=== PATIENT | male | born 1970 | race Asian ===

== ENCOUNTER 2023-10-08 13:18 | Outpatient (AMB) | payer BC, SELFPAY ==
--- NOTE | 2023-10-08 13:28 | A.OFFPC_ITS ---
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 Required: No Accompanied by: Self / Same As Patient Allergies No Known Allergies Allergy (Verified 10/08/23 13:29) Medication List - Last Reconciled 10/08/23 by Javier Miguel MD allopurinol 200 mg PO DAILY colchicine 0.6 mg PO DAILY diclofenac potassium 50 mg PO BID Tobacco use date assessed: 10/08/23 Dental Screening Dental Screen Date: 10/08/23 Did you have a dental visit in the last 12 months?: Yes Did you have a dental problem in the last 6 months where you did not have access to dental care?: No Was dental information given to patient?: Patient has dentist HPI Establish Care OK per [place] HPI Details Patient is a 52-year-old gentleman came in today for establish care and physical exam Patient have a history of gout, he is on allopurinol and takes colchicine for flare-up Patient has been doing well Last time he had uric acid level drawn was last year it was in 6 range Patient is requesting a referral to Rheumatology for management of gout. He has moved from [place] few months ago. Patient also have a history of patellar tendinitis which started in left knee and then progressed to right, that 2 flares up every now and then Patient uses diclofenac local drop for that. History of right shoulder AC joint separation, then he developed a frozen shoulder 2-1/2 years ago which resolved with the help of physical therapy. 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 1. Little interest or pleasure in doing things: not at all 2. Feeling down, depressed, or hopeless: not at all 3. Trouble falling or staying asleep, or sleeping too much: not at all 4. Feeling tired or having little energy: not at all 5. Poor appetite or overeating: not at all 6. Feeling bad about yourself - or that you are a failure or have let yourself or your family down: not at all 7. Trouble concentrating on things, such as reading the newspaper or watching television: not at all 8. Moving or speaking so slowly that other people could have noticed. Or the opposite - being so fidgety or restless that you have been moving around a lot more than usual: not at all 9. Thoughts that you would be better off or of hurting yourself in some way: not at all Total score: 0 Depression Screening Interpretation: Negative Depression Screening Done: Yes 86280 - PHQ-9 Billing: Yes Source: Developed by Drs. Matt Beatty, Ruma Werner, Jay Archibald and colleagues, with an educational sophie from [employer]. Thrive Questionnaire Date Thrive assessed: 10/08/23 I am a: Patient What is your living situation today?: I have a steady place to live Within the past 12 months, did the food you bought not last and you didn't have the money to get more?: Never true Within the past 12 months, did you worry whether your food would run out before you got money to buy more?: Never true Do you have trouble paying for medicines?: No Do you have trouble getting transportation to medical appointments?: No Do you have trouble paying your heating and electricity bill?: No Do you have trouble taking care of your child, family member or friend?: No Do you have trouble with day-to-day activities such as bathing, preparing meals, shopping, managing finances, etc.?: No Are you currently unemployed and looking for a job?: No Are you interested in more education?: No Please select the resources that you would like help with: None Currently or been in a relationship where the following occur: no concerns reported AUDIT C Alcohol Use Questionnaire (AUDIT-C) 1. How often do you have a drink containing alcohol?: 2-3 times a week 2. How many drinks containing alcohol do you have on a typical day when you are drinking?: 3 or 4 3. How often do you have six or more drinks on one occasion?: Monthly Total Score: 6 Score Reviewed/Action Taken: Yes (Survey was reviewed after patient left, I will have a nurse call patient ) LULU-7 AMB Questionnaire LULU-7 Date LULU - 7 assessed: 10/08/23 Feeling nervous, anxious, or on edge: 0 = Not at all Not being able to stop or control worryin = Not at all Worrying too much about different things: 0 = Not at all Trouble relaxin = Not at all Being so restless that it is hard to sit still: 0 = Not at all Becoming easily annoyed or irritable: 0 = Not at all Feeling afraid as if something awful might happen: 0 = Not at all Total LULU-7 score (0-4 normal; 5-9 mild; 10-14 moderate; 15-21 severe): 0 Source: Developed by Drs. Matt Beatty, Ruma Werner, Jay Archibald and colleagues, with an educational sophie from [employer]. LULU-7 Assessment Billing LULU-7 Assessment Tool: LULU-7 Assessment 78293 Review of Systems Const Denies chills, Denies fever(s) and Denies headache(s) Eyes Denies blurry vision ENT Denies headache(s), Denies nasal discharge, Denies nasal obstruction, Denies odynophagia and Denies sinus pain Card Denies chest pain at rest and Denies chest pain with activity Resp Denies cough and Denies hemoptysis GI Denies diarrhea, Denies odynophagia, Denies vomiting and Denies hematemesis Reports as per HPI Musc Denies abnormal gait Skin/Breast Reports as per HPI Neuro Denies Neuro-related abnormal movements, Denies Abnormal speech present, Denies abnormal gait, Denies headache(s) and Denies Sensory deficit (Neuro) Psych Denies mood swings and Denies paranoia Endo Reports as per HPI Ronald/Lymph Reports as per HPI Aller/Immun Reports as per HPI Physical exam (Primary Care) Vital Signs: Last Vital Signs Pulse 75 10/08/23 13:30 BP 130/80 10/08/23 13:30 Pulse Ox 98 10/08/23 13:30 BMI result Body Mass Index 27.4 Tobacco/Smoking Status: Tobacco use Status Tobacco use date assessed 10/08/23 10/08/23 13:39 Patient Tobacco Use Status Never used Tobacco 10/08/23 13:39 e-Cigarette/Vaping Use Never Used 10/08/23 13:39 PHQ-9: PHQ-9 Score PHQ-9: Total score 0 10/08/23 14:05 Depression Screening Interpretation: Negative Thrive Assessment: Date of Thrive Assessment Date Thrive assessed 10/08/23 10/08/23 13:39 Currently or been in a relationship where the following occur: no concerns reported Const General: cooperative, comfortable and no acute distress Orientation/consciousness: patient oriented x3 HENMT Head: Yes normocephalic and Yes atraumatic Eyes General: appearance normal, both eyes and all related structures Pupils: Equal, round and reactive pupils present EOM: EOMs intact bilaterally Neck Neck: Yes supple and No lymphadenopathy Thyroid: Thyroid normal Lymphatic: no lymphadenopathy noted Resp Effort & Inspection: normal respiratory effort and able to speak in complete sentences Auscultation: clear to auscultation bilaterally Cardio Heart sounds: S1 normal heart sound present and S2 normal heart sound present GI Palpation (GI): Soft to palpation and nontender Auscultation: normal bowel sounds General: Yes no CVA tenderness Back/Spine/Pelvis Back: no CVA tenderness Skin General skin exam: elasticity normal and turgor normal Neuro General: patient oriented x3 and gait normal Cranial nerves: Yes Equal, round and reactive pupils present Speech: No Abnormal speech present Sensory Exam: No Sensory deficit (Neuro) Coordination: tandem gait normal and Romberg test negative Extrem General: Yes normal exam except as noted and No edema Assessment and Plan Assessment & Plan (1) Establishing care with new doctor, encounter for: Code(s): Z76.89 - Persons encountering health services in other specified circumstances (2) Lipid disorder: Code(s): E78.9 - Disorder of lipoprotein metabolism, unspecified (3) Gout: Code(s): M10.9 - Gout, unspecified Qualifiers: Chronicity: chronic Gout etiology: idiopathic Gout site: multiple sites Presence of tophus: without tophus Qualified Code(s): M1A.09X0 - Idiopathic chronic gout, multiple sites, without tophus (tophi) (4) Possible alcohol use disorder on screening for alcoholism: Code(s): Z13.39 - Encounter for screening examination for other mental health and behavioral disorders Plan Patient is a 52-year-old gentleman came in today for establish care and physical exam Patient have a history of gout, he is on allopurinol and takes colchicine for flare-up Patient has been doing well Last time he had uric acid level drawn was last year it was in 6 range Patient is requesting a referral to Rheumatology for management of gout. He has moved from [place] few months ago. Patient also have a history of patellar tendinitis which started in left knee and then progressed to right, that 2 flares up every now and then Patient uses diclofenac local drop for that. History of right shoulder AC joint separation, then he developed a frozen shoulder 2-1/2 years ago which resolved with the help of physical therapy. 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 Patient tells me that all his vaccinations are up-to-date Orders: Orders Comprehensive [place]. Panel Fast Today E78.9 - Disorder of lipoprotein metabolism, unspecified, M10.9 - Gout, unspecified, Z76.89 - Persons encountering health services in other specified circumstances Lipid Panel Today E78.9 - Disorder of lipoprotein metabolism, unspecified, M10.9 - Gout, unspecified, Z76.89 - Persons encountering health services in other specified circumstances Complete Blood Count Auto Diff Today E78.9 - Disorder of lipoprotein metabolism, unspecified, M10.9 - Gout, unspecified, Z76.89 - Persons encountering health services in other specified circumstances Uric Acid Today M10.9 - Gout, unspecified Referrals Rheumatology Referral M10.9 - Gout, unspecified Gastroenterology Referral Z12.11 - Encounter for screening for malignant neopla sm of colon Coding Level of Care Code New Pt Prev Care 40-64y(05381) Diagnoses Establishing care with new doctor, encounter for Z76.89 Lipid disorder E78.9 Idiopathic chronic gout of multiple sites without tophus M1A.09X0 Chronicity: chronic Gout etiology: idiopathic Gout site: multiple sites Presence of tophus: without tophus Possible alcohol use disorder on screening for alcoholism Z13.39 Additional Codes LULU-7 Assessment Billing - LULU-7 Assessment Tool: LULU-7 Assessment [id number] ([id number])
[2023-10-08 13:30] VITALS: BP 130/80; PULSE 75; O2SAT 98; BMI 27.4
== END 2023-10-08 17:05 | disposition home or self-care (01) ==
PROVIDERS: PCP Internal Medicine; Visit Provider Internal Medicine
DX: Z00.00 Encounter for general adult medical examination without abnormal findings (principal); E78.9 Disorder of lipoprotein metabolism, unspecified; M1A.09X0 Idiopathic chronic gout, multiple sites, without tophus (tophi)
CPT/HCPCS: 99386

== ENCOUNTER 2023-11-15 13:51 | Outpatient (AMB) | payer BC, SELFPAY ==
[2023-11-15 13:53] VITALS: BP 90/60; PULSE 64; TEMP 36.1; O2SAT 98; BMI 27.4
--- NOTE | 2023-11-15 13:53 | A.OFFVIS_ITS ---
Intake Vital Signs 11/15/23 13:53 Height 5 ft 6 in Weight 169 lb 8.568 oz BMI 27.4 BP 90/60 Blood Pressure Location Rt brachial Position Sitting Pulse 64 Pulse Source Pulse Oximeter Temp 97 F Temp Source Skin Pulse Oximetry (%) 98 Oxygen Delivery Method Room Air Intake Visit Reasons: Gout Intake Note: New pt presents today for consult. C/o gout, orion knee pain, right shoulder AC joint pain Pain started approx 1.5 mo (knee), 2 yrs of and off (shoulder) Has tried PT (shoulder), oral medications (gout), atopical cream (knees) Previously saw a belt machine operator in [facility]. Section Chief Required: No Accompanied by: Self / Same As Patient Allergies No Known Allergies Allergy (Verified 11/15/23 13:59) Medication List - Last Reconciled 11/15/23 by Marck Lai MD allopurinol 300 mg PO DAILY colchicine 0.6 mg PO DAILY PRN diclofenac sodium 1% (Voltaren Arthritis Pain) 2 grams topical QID PRN HPI HPI Comments History of Present Illness Details This is a 52-year-old male with gout who is referred for gout management. Patient lived in [place] for many years and used to follow-up regularly with rheumatology Dr. José Sanders in [facility]. He states that he was diagnosed with gout around 2009. He was having gout episodes affecting his big toes. He was started on allopurinol and colchicine and has been doing quite well. Has not had a gout flare-up in years. States that back in December 2022 his uric acid level was elevated and his belt machine operator increase the allopurinol to 300 mg daily which he has been taking until June of 2023 then ran out of the 300 mg dose. He has been taking the 200 mg dose. Has not use colchicine in years. He states that he was diagnosed with frozen shoulder a few years ago affecting his right shoulder, treated with PT. an x-ray showed AC separation States that for about a year and a half or so he has been having left medial knee pain and was told he has tendinitis he was taking diclofenac as needed for this pain, he recently ran out and has been using topical Voltaren gel as needed. It has not been bothering him today. 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 He denies any history of kidney stones. He is unaware of any family history of gout. 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 [employer] Cognitive needs: No Hearing needs: No Vision needs: Yes Review of Systems Eyes Reports dry eyes Musc Reports arthralgias and Reports joint swelling Physical Exam Vital Signs: Last Vital Signs Temp 97 F 11/15/23 13:53 Pulse 64 11/15/23 13:53 BP 90/60 11/15/23 13:53 Pulse Ox 98 11/15/23 13:53 Oxygen Delivery Method Room Air 11/15/23 13:53 BMI result Body Mass Index 27.4 Const General: cooperative, healthy appearing and comfortable Nutritional Appearance: overweight Orientation/consciousness: patient oriented x3 Limitations: no limitations HEENT Head: Yes normocephalic and Yes atraumatic Mouth: moist mucous membranes Resp Effort & Inspection: normal respiratory effort and able to speak in complete sentences Auscultation: clear to auscultation bilaterally Cardio Rate: regular rate Rhythm: regular rhythm GI Inspection: No distended Palpation (GI): Soft to palpation and nontender Skin General skin exam: no rashes or lesions noted Neuro General: patient oriented x3 Extrem Other: Osteoarthritic changes of both hands with Heberden's nodes but no active synovitis. No tophi noted Normal range of motion of both shoulders Bilateral knee crepitus without pain Assessment & Plan Assessment & Plan (1) Gout: Comment: dx around 2009 podagra affecting both feet Allopurinol + colchicine started 2009 Code(s): M10.9 - Gout, unspecified Qualifiers: Chronicity: chronic Gout etiology: idiopathic Gout site: multiple sites Presence of tophus: without tophus Qualified Code(s): M1A.09X0 - Idiopathic chronic gout, multiple sites, without tophus (tophi) Plan: This is a 52-year-old male who presents for gout management. Patient recently moved from [place]. Patient has had no gout flare-ups for years. Has been on allopurinol 200 mg daily for years until December of 2022 when the allopurinol was increased to 300 mg by his belt machine operator due to increased uric acid level. Patient has been taking allopurinol 200 mg daily as he ran out Will check uric acid level. Allopurinol 300 mg daily refilled. Patient has not used colchicine in years Check uric acid level before next visit (2) Pain in left knee: Code(s): M25.562 - Pain in left knee Qualifiers: Chronicity: chronic Qualified Code(s): M25.562 - Pain in left knee; G89.29 - Other chronic pain Plan: Clinical picture rather consistent with tendonitis/bursitis. Advised patient to use topical Voltaren gel 3 to 4 times a day when symptomatic. If symptoms get progressively worse, we can consider imaging Plan I spent 34 minutes reviewing patient's chart, evaluating patient, ordering diagnostic workup, counseling patient and documenting in the chart Orders: Orders Comprehensive Met. Panel 3 Months M10.9 - Gout, unspecified Uric Acid 3 Months M10.9 - Gout, unspecified Medications: New allopurinol 300 mg PO DAILY 90 tabs 1RF Coding Level of Care Code New Pt Level 3 (85435) Diagnoses Idiopathic chronic gout of multiple sites without tophus M1A.09X0 Chronicity: chronic Gout etiology: idiopathic Gout site: multiple sites Presence of tophus: without tophus Chronic pain of left knee M25.562; G89.29 Chronicity: chronic
== END 2023-11-15 14:39 | disposition home or self-care (01) ==
PROVIDERS: PCP Internal Medicine; Visit Provider Student in an Organized Health Care Education/Training Program
DX: M1A.09X0 Idiopathic chronic gout, multiple sites, without tophus (tophi) (principal); M25.562 Pain in left knee; G89.29 Other chronic pain
CPT/HCPCS: 99203

== ENCOUNTER → 2023-11-15 13:51 | Outpatient (BNVA) | payer BC, SELFPAY | PROVIDERS: PCP Internal Medicine; Visit Provider Student in an Organized Health Care Education/Training Program ==

== ENCOUNTER 2023-12-27 08:37 | Outpatient (AMB) | payer BC, SELFPAY ==
--- NOTE | 2023-12-27 08:48 | A.OFFVIS_ITS ---
Intake Vital Signs 12/27/23 08:49 Height 5 ft 6 in Weight 167 lb 8.821 oz BMI 27.0 BP 133/96 H Blood Pressure Location Rt brachial Position Sitting Pulse 69 Intake Visit Reasons: Colonoscopy Screening Intake Note: Patient present to in office visit today as a new patient for colonoscopy screening. 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 male here today for pre col onoscopy screening.? Patient was sent to us by his PCP.? This is his first colonoscopy screening.? Patient denies any gastrointestinal symptoms in the past or at present.? Denies any personal or family history of gastrointestinal disease, colon polyps, or c ancer.? Denies history of difficulty with sedation or anesthesia in the past.? Negative for history of sleep apnea.? Denies any history of cardiac, renal, pulmonary, or hepatic disease.?? No history of infectious? diseases like hepatitis A, B, C, HIV or tuberculosis.? Patient is not on any anticoagulation therapy. 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 [employer] Cognitive needs: No Hearing needs: No Vision needs: Yes Review of Systems Const Denies weight gain and Denies weight loss ENT Reports no additional complaints, Denies dysphagia and Denies odynophagia Card Reports no additional complaints Resp Reports no additional complaints GI Denies abdominal pain, Denies belching, Denies melena, Denies bloating, Denies change in bowel habits, Denies dysphagia, Denies excessive flatus, Denies dyspepsia, Denies heartburn, Denies diarrhea, Denies loose stools, Denies nausea, Denies odynophagia and Denies vomiting Reports no additional complaints Musc Reports no additional complaints Neuro Reports no additional complaints Psych Reports no additional complaints Endo Reports no additional complaints Physical Exam Vital Signs: Last Vital Signs Pulse 69 12/27/23 08:49 BP 133/96 H 12/27/23 08:49 BMI result Body Mass Index 27.0 Const General: healthy appearing, no acute distress and well developed Nutritional Appearance: well nourished Orientation/consciousness: patient oriented x3 Resp Effort & Inspection: normal respiratory effort, able to speak in complete sentences, no tracheal deviation and symmetric chest movement Auscultation: clear to auscultation bilaterally Cardio Rate: regular rate GI Inspection: Yes normal to inspection and No distended Palpation (GI): Soft to palpation, not firm, nontender and No hepatosplenomegaly present Auscultation: normal bowel sounds General: Yes no CVA tenderness Back/Spine/Pelvis Back: no CVA tenderness Skin General skin exam: elasticity normal, turgor normal and dry skin Neuro General: patient oriented x3 Psych Appearance: grossly normal Mental Status: mental status grossly normal Assessment & Plan Assessment & Plan (1) Colon cancer screening: Code(s): Z12.11 - Encounter for screening for malignant neoplasm of colon Plan Patient denies any GI, cardiac or respiratory symptoms.? Denies any issues with anesthesia in the past.? Denies any history of sleep apnea.? No history infectious diseases in the past or present.? Not on any anticoagulation therapy.? No family or personal history of colon cancer or polyps.? Patient denies melena, hematochezia, unintentional weight loss or ribbon like stools.? Discussed at length the pre-procedure,? prep, diet & medications as well as what to expect prior, during and after the procedure.?? Stressed the importance of good bowel prep. ?Recommended the use of Vaseline or Calmoseptine OTC & baby wipes with bowel movements to promote comfort.? ?Patient verbalizes understanding and agrees to plan of care.? He was given the opportunity to ask questions and all questions answered.? We will see him after the procedure.? Medications: New bisacodyl (Dulcolax (bisacodyl)) take 4 tabs at noon the day before your colonoscopy 20 mg (4 x 5 mg) PO ONCE 1 day 4 tabs 0RF Z12.11 - Encounter for screening for malignant neoplasm of colon polyethylene glycol 3350 (Miralax) As directed by gastroenterology department at [facility] 238 grams PO ONCE 238 grams 0RF Z12.11 - Encounter for screening for malignant neoplasm of colon Coding Level of Care Code New Pt Level 3 (34397) Diagnoses Colon cancer screening Z12.11 Time Spent (min) 40 Comment 30 minutes spent with patient and additional 10 minutes spent reviewing his records
[2023-12-27 08:49] VITALS: BP 133/96; PULSE 69; BMI 27.0
== END 2023-12-27 10:32 | disposition home or self-care (01) ==
PROVIDERS: PCP Internal Medicine; Referring Provider Internal Medicine; Visit Provider Nurse Practitioner Family
DX: Z01.818 Encounter for other preprocedural examination (principal); Z12.11 Encounter for screening for malignant neoplasm of colon
CPT/HCPCS: S0285

== ENCOUNTER → 2023-12-27 08:37 | Outpatient (BNVA) | payer BC, SELFPAY | PROVIDERS: PCP Internal Medicine; Visit Provider Nurse Practitioner Family ==

== ENCOUNTER 2023-12-27 09:55 | Outpatient (REF) | payer BC, SELFPAY ==
[2023-12-27 13:40] LABS: MANUAL DIFF FLAG NO
[2023-12-27 13:46] LABS: Basophils Absolute Auto 0.1 X10*3/uL (0.0-0.2); Eosinophils Absolute Auto 0.5 X10*3/uL (0.0-0.4); Eosinophils Percent Auto 9.3 % (0-4); Hemoglobin 15.7 g/dl (14.0-18.0); Imm Gran Abs Auto 0.01 X10*3/uL (0.00-0.03); Imm Gran Pct Auto 0.2 % (0.0-0.4); Lymphocytes Absolute Auto 1.9 X10*3/uL (1.2-4.9); Lymphocytes Percent Auto 35.9 % (20-40); Mean Corpuscular HGB Conc 34.1 g/dl (31.0-36.0); Mean Corpuscular Hemoglobin 31.3 pg (27.0-33.0); Mean Corpuscular Volume 91.8 fL (80.0-98.0); Mean Platelet Volume 9.5 fL (9.4-12.4); Monocytes Absolute Auto 0.5 X10*3/uL (0.1-1.2); Monocytes Percent Auto 9.5 % (2-11); Neutrophils Absolute Auto 2.3 x10*3/uL (2.0-8.3); Neutrophils Percent Auto 44.1 % (45-73); Platelet Count 289 X10*3/uL (160-400); Red Blood Count 5.01 X10*6/uL (4.60-5.80); Red Cell Distribution Width 12.8 % (11.0-16.0); White Blood Count 5.2 X10*3/uL (4.8-10.8)
[2023-12-27 14:05] LABS: Alanine Aminotransferase 61 U/L (0-40); Albumin Level 4.8 g/dL (3.5-5.0); Alkaline Phosphatase 62 U/L (39-117); Anion Gap 15 (12-20); Aspartate Amino Transferase 44 U/L (5-37); Bilirubin Total 0.9 mg/dL (0.0-1.0); Blood Urea Nitrogen 16 mg/dL (9-16); Calcium 9.8 mg/dL (8.4-10.2); Carbon Dioxide 26 mmol/L (22-29); Chloride 102 mmol/L (96-108); Cholesterol 220 mg/dL (<200); Estimated Glomerular Filt Rate > 60; Glucose Fasting 106 mg/dL (60-99); HDL Cholesterol 55 mg/dL (>40); LDL Cholesterol Calculated 124 mg/dL (<100); Potassium 3.8 mmol/L (3.3-5.1); Sodium 139 mmol/L (135-145); Total Protein 7.6 g/dL (6.5-8.0); Triglycerides 205 mg/dL (<150); Uric Acid 6.9 mg/dL (3.4-7.0)
== END 2023-12-27 09:56 | disposition home or self-care (01) ==
LOC: HO.HMGCLDS 09:55
PROVIDERS: PCP Internal Medicine; Visit Provider Internal Medicine
DX: Z01.818 Encounter for other preprocedural examination (principal); E78.9 Disorder of lipoprotein metabolism, unspecified; M10.9 Gout, unspecified; Z76.89 Persons encountering health services in other specified circumstances
CPT/HCPCS: 36415; 80053; 80061; 84550; 85025

== ENCOUNTER 2024-02-15 10:39 | Outpatient (REF) | payer BC, SELFPAY ==
[2024-02-15 14:36] LABS: Alanine Aminotransferase 37 U/L (0-40); Albumin Level 4.5 g/dL (3.5-5.0); Alkaline Phosphatase 61 U/L (39-117); Anion Gap 11 (12-20); Aspartate Amino Transferase 27 U/L (5-37); Bilirubin Total 0.5 mg/dL (0.0-1.0); Blood Urea Nitrogen 11 mg/dL (9-16); Calcium 9.6 mg/dL (8.4-10.2); Carbon Dioxide 28 mmol/L (22-29); Chloride 102 mmol/L (96-108); Estimated Glomerular Filt Rate > 60; Glucose Random 110 mg/dL (60-115); Potassium 4.1 mmol/L (3.3-5.1); Sodium 137 mmol/L (135-145); Total Protein 7.3 g/dL (6.5-8.0)
== END 2024-02-15 10:40 | disposition home or self-care (01) ==
LOC: HO.HMGCLDS 10:39
PROVIDERS: PCP Internal Medicine; Visit Provider Student in an Organized Health Care Education/Training Program
DX: M10.9 Gout, unspecified (principal)
CPT/HCPCS: 36415; 80053; 84550

== ENCOUNTER 2024-02-16 08:16 | Outpatient (AMB) | payer BC, SELFPAY ==
--- NOTE | 2024-02-16 08:16 | A.OFFVIS_ITS ---
Intake Vital Signs 02/16/24 08:17 Height 5 ft 6 in Weight 169 lb 12.095 oz BMI 27.4 BP 132/78 Blood Pressure Location Rt brachial Position Sitting Pulse 80 Pulse Source Pulse Oximeter Pulse Oximetry (%) 97 Oxygen Delivery Method Room Air Intake Visit Reasons: Gout Intake Note: Patient last seen 11/15/23 presents today for follow up and test results. Would like diclofenac tablets. He does use gel but feels oral meds would be better with the type of work he does. 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 Most painful joints bl knees. Has had cortisone injection in the past for his shoulder, tolerated well no reaction. Wet Primer Powder Blender Required: No Accompanied by: Self / Same As Patient Allergies No Known Allergies Allergy (Verified 02/16/24 08:20) Medication List - Last Reconciled 02/16/24 by Marck Lai MD allopurinol 300 mg PO DAILY bisacodyl (Dulcolax (bisacodyl)) 20 mg (4 x 5 mg) PO ONCE 1 day colchicine 0.6 mg PO DAILY PRN diclofenac sodium 1% (Voltaren Arthritis Pain) 2 grams topical QID PRN polyethylene glycol 3350 (Miralax) 238 grams PO ONCE HPI HPI Comments History of Present Illness Details 53-year-old male with gout returns for f ollow-up. Has been doing quite well in terms of his gout. He remains on allopurinol 300 mg daily. Has not had any gout flare-ups. Has not used colchicine since last visit. States that he continues to have bilateral knee pain, worse on the left. Believes it is tendinitis/bursitis. Worse with activity as a tablet making machine operator. States that diclofenac gel helps, but it is short-lived. He would use it 4 to 5 times a day. He would like to use an oral NSAIDs such as ibuprofen but it causes GI upset. Initial history: This is a 52-year-old male with gout who is referred for gout management. Patient lived in [place] for many years and used to follow-up regularly with rheumatology Dr. José Sanders in [facility]. He states that he was diagnosed with gout around 2009. He was having gout episodes affecting his big toes. He was started on allopurinol and colchicine and has been doing quite well. Has not had a gout flare-up in years. 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 He has been taking the 200 mg dose. Has not use colchicine in years. He states that he was diagnosed with frozen shoulder a few years ago affecting his right shoulder, treated with PT. an x-ray showed AC separation States that for about a year and a half or so he has been having left medial knee pain and was told he has tendinitis he was taking diclofenac as needed for this pain, he recently ran out and has been using topical Voltaren gel as needed. It has not been bothering him today. Of note patient worked as a tablet making machine operator for many years. He denies any history of kidney stones. He is unaware of any family history of gout. 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 [employer] Cognitive needs: No Hearing needs: No Vision needs: Yes Review of Systems [facility] Reports arthralgias and Reports joint swelling Physical Exam Vital Signs: Last Vital Signs Pulse 80 02/16/24 08:17 BP 132/78 02/16/24 08:17 Pulse Ox 97 02/16/24 08:17 Oxygen Delivery Method Room Air 02/16/24 08:17 BMI result Body Mass Index 27.4 Const General: cooperative, healthy appearing and comfortable Nutritional Appearance: overweight Orientation/consciousness: patient oriented x3 Limitations: no limitations HEENT Head: Yes normocephalic and Yes atraumatic Mouth: moist mucous membranes Resp Effort & Inspection: normal respiratory effort and able to speak in complete sentences Auscultation: clear to auscultation bilaterally Cardio Rate: regular rate Rhythm: regular rhythm GI Inspection: No distended Palpation (GI): Soft to palpation and nontender Skin General skin exam: no rashes or lesions noted Neuro General: patient oriented x3 Extrem Other: Osteoarthritic changes of both hands with Heberden's nodes but no active synovitis. No tophi noted Normal range of motion of both shoulders Left knee crepitus Office Procedures Joint Injection/Drain Joint Injection/Drain Primary Site: left knee Prep: site was prepped using sterile technique and ethochloride spray was applied Injected: 40 mg of, Kenalog and other (2 mL of 1% lidocaine) Approach Used: medial parapatellar Coding 39115 - Large joint Procedure code (CPT) selection complete Assessment & Plan Assessment & Plan (1) Gout: Comment: dx around 2009 podagra affecting both feet Allopurinol + colchicine started 2009 Code(s): M10.9 - Gout, unspecified Qualifiers: Gout site: multiple sites Gout etiology: idiopathic Chronicity: chronic Presence of tophus: without tophus Qualified Code(s): M1A.09X0 - Idiopathic chronic gout, multiple sites, without tophus (tophi) Plan: This is a 53-year-old male with gout who presents for follow-up. On allopurinol 300 mg daily. Uric acid level almost at target 6.0. Continue with allopurinol 300 mg daily Follow-up in 3 months (2) Pain in left knee: Code(s): M25.562 - Pain in left knee Qualifiers: Chronicity: chronic Qualified Code(s): M25.562 - Pain in left knee; G89.29 - Other chronic pain Plan: Gets bilateral knee pain with activity as a tablet making machine operator. Voltaren gel used 4 to 5 times a day provides short term relief. We discuss systemic NSAIDs versus steroid injection. Historically, Patient gets GI upset with oral NSAIDs. We discussed a steroid injection. Patient agreed to proceed. With patient's consent, left knee injected with Kenalog today. Check bilateral knee x-rays Can consider Celebrex in the future Plan I spent 24 minutes reviewing patient's chart, evaluating patient, ordering diagnostic workup, counseling patient and documenting in the chart Orders: Orders XR knee RT 3V Today M17.0 - Bilateral primary osteoarthritis of knee XR knee standing BI Today M17.0 - Bilateral primary osteoarthritis of knee XR knee LT 3V Today M17.0 - Bilateral primary osteoarthritis of knee AMB Joint Injection/Aspiration Today M17.12 - Unilateral primary osteoarthritis, left knee Medications: Refilled allopurinol 300 mg PO DAILY 90 tabs 1RF Coding Level of Care Code Est Pt Level 4 (23947) Diagnoses Idiopathic chronic gout of multiple sites without tophus M1A.09X0 Gout site: multiple sites Gout etiology: idiopathic Chronicity: chronic Presence of tophus: without tophus Chronic pain of left knee M25.562; G89.29 Chronicity: chronic CPT Codes Coding - 82199 Large joint: 97241 - Large joint ([id number])
[2024-02-16 08:17] VITALS: BP 132/78; PULSE 80; O2SAT 97; BMI 27.4
== END 2024-02-16 08:50 | disposition home or self-care (01) ==
PROVIDERS: PCP Internal Medicine; Visit Provider Student in an Organized Health Care Education/Training Program
DX: M1A.09X0 Idiopathic chronic gout, multiple sites, without tophus (tophi) (principal); M25.562 Pain in left knee; G89.29 Other chronic pain
CPT/HCPCS: 20610; 99214

== ENCOUNTER 2024-02-16 08:16 | Outpatient (REF) | payer BC, SELFPAY ==
--- NOTE | ~2024-02-16 | XR_ITS ---
EXAMINATION: XR BILATERAL KNEES CLINICAL INFORMATION: Primary osteoarthritis of bilateral knees. TECHNIQUE: AP standing, tunnel, lateral and sunrise views of bilateral knees. COMPARISON: None available. FINDINGS: RIGHT KNEE: Trace joint effusion. Mild narrowing of the medial compartment. LEFT KNEE: Moderate joint effusion. Mild narrowing of the medial and lateral compartments. XR/XR knee LT 4V IMPRESSION: Mild degenerative changes in the bilateral knees.
--- NOTE | ~2024-02-16 | XR_ITS ---
EXAMINATION: XR BILATERAL KNEES CLINICAL INFORMATION: Primary osteoarthritis of bilateral knees. TECHNIQUE: AP standing, tunnel, lateral and sunrise views of bilateral knees. COMPARISON: None available. FINDINGS: RIGHT KNEE: Trace joint effusion. Mild narrowing of the medial compartment. LEFT KNEE: Moderate joint effusion. Mild narrowing of the medial and lateral compartments. XR/XR knee RT 4V IMPRESSION: Mild degenerative changes in the bilateral knees.
== END 2024-02-16 08:17 | disposition home or self-care (01) ==
LOC: HO.XRAY 08:16
PROVIDERS: PCP Internal Medicine; Visit Provider Student in an Organized Health Care Education/Training Program
DX: M1A.09X0 Idiopathic chronic gout, multiple sites, without tophus (tophi) (principal); M25.562 Pain in left knee
CPT/HCPCS: 20610; 73564

== ENCOUNTER 2024-04-04 08:19 | Outpatient (AMB) | payer BC, SELFPAY ==
--- NOTE | 2024-04-04 08:29 | MHC.PC.OV ---
Vital Signs 04/04/24 08:30 Height 5 ft 6 in Weight 169 lb BMI 27.3 BP 130/90 H Blood Pressure Location Lt brachial Position Sitting Pulse 75 Pulse Source Pulse Oximeter Pulse Oximetry (%) 94 Oxygen Delivery Method Room Air Intake Visit Reasons: 6 Month F/U Allergies No Known Allergies Allergy (Verified 04/04/24 08:31) Medication List - Last Reconciled 04/04/24 by Javier Miguel MD allopurinol 300 mg PO DAILY bisacodyl (Dulcolax (bisacodyl)) 20 mg (4 x 5 mg) PO ONCE 1 day colchicine 0.6 mg PO DAILY PRN diclofenac sodium 1% (Voltaren Arthritis Pain) 2 grams topical QID PRN polyethylene glycol 3350 (Miralax) 238 grams PO ONCE Tobacco use date assessed: 04/04/24 Dental Screening Dental Screen Date: 04/04/24 Did you have a dental visit in the last 12 months?: Yes Did you have a dental problem in the last 6 months where you did not have access to dental care?: No Was dental information given to patient?: Patient has dentist HPI 6 Month F/U HPI Details Patient is a 53-year-old came in today for his six-month follow-up appointment Patient is seeing Rheumatology now, treatment for gout and bilateral osteoarthritis knees through Rheumatology. Patient is prehypertensive with blood pressure readings in 130s systolic We are keeping an eye on that, also encouraged that he monitor his blood pressure at home Allergies are acting up, patient is taking [id number] long-acting anti histamine Colonoscopy appointment coming up end of this month Last time he had labs done he had impaired fasting sugar Patient have appointment in October for physical exam Order placed for labs to be done fasting. 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 1. Little interest or pleasure in doing things: not at all 2. Feeling down, depressed, or hopeless: not at all 3. Trouble falling or staying asleep, or sleeping too much: more than half the days 4. Feeling tired or having little energy: several days 5. Poor appetite or overeating: not at all 6. Feeling bad about yourself - or that you are a failure or have let yourself or your family down: not at all 7. Trouble concentrating on things, such as reading the newspaper or watching television: not at all 8. Moving or speaking so slowly that other people could have noticed. Or the opposite - being so fidgety or restless that you have been moving around a lot more than usual: not at all 9. Thoughts that you would be better off or of hurting yourself in some way: not at all Total score: 3 Depression Screening Interpretation: Negative Depression Screening Done: Yes 57905 - PHQ-9 Billing: Yes Source: Developed by Drs. Matt Beatty, Ruma Werner, Jay Archibald and colleagues, with an educational sophie from [employer]. Thrive Questionnaire Date Thrive assessed: 04/04/24 I am a: Patient What is your living situation today?: I have a steady place to live Within the past 12 months, did the food you bought not last and you didn't have the money to get more?: Never true Within the past 12 months, did you worry whether your food would run out before you got money to buy more?: Never true Do you have trouble paying for medicines?: No Do you have trouble getting transportation to medical appointments?: No Do you have trouble paying your heating and electricity bill?: No Do you have trouble taking care of your child, family member or friend?: No Do you have trouble with day-to-day activities such as bathing, preparing meals, shopping, managing finances, etc.?: No Are you currently unemployed and looking for a job?: No Are you interested in more education?: No Please select the resources that you would like help with: None Currently or been in a relationship where the following occur: no concerns reported THRIVE Score: 0 AUDIT C Alcohol Use Questionnaire (AUDIT-C) 1. How often do you have a drink containing alcohol?: 4 or more times a week 2. How many drinks containing alcohol do you have on a typical day when you are drinking?: 7 to 9 3. How often do you have six or more drinks on one occasion?: Never Total Score: 7 Score Reviewed/Action Taken: Yes LULU-7 AMB Questionnaire LULU-7 Date LULU - 7 assessed: 04/04/24 Feeling nervous, anxious, or on edge: 0 = Not at all Not being able to stop or control worryin = Not at all Worrying too much about different things: 0 = Not at all Trouble relaxin = Not at all Being so restless that it is hard to sit still: 0 = Not at all Becoming easily annoyed or irritable: 0 = Not at all Feeling afraid as if something awful might happen: 0 = Not at all Total LULU-7 score (0-4 normal; 5-9 mild; 10-14 moderate; 15-21 severe): 0 Source: Developed by Drs. Matt Beatty, Ruma Werner, Jay Archibald and colleagues, with an educational sophie from [employer]. LULU-7 Assessment Billing LULU-7 Assessment Tool: LULU-7 Assessment 07328 Review of Systems Const Denies chills and Denies fever(s) ENT Denies epistaxis and Denies nasal discharge Card Denies chest pain Resp Denies chest congestion, Denies cough and Denies hemoptysis GI Denies diarrhea and Denies nausea Skin/Breast Denies rash Neuro Reports no additional complaints Psych Reports no additional complaints Endo Reports no additional complaints Physical exam (Primary Care) Vital Signs: Last Vital Signs Pulse 75 04/04/24 08:30 BP 130/90 H 04/04/24 08:30 Pulse Ox 94 04/04/24 08:30 Oxygen Delivery Method Room Air 04/04/24 08:30 BMI result Body Mass Index 27.3 Tobacco/Smoking Status: Tobacco use Status Tobacco use date assessed 04/04/24 04/04/24 08:33 Patient Tobacco Use Status Former Tobacco user 04/04/24 08:30 e-Cigarette/Vaping Use Never Used 04/04/24 08:30 PHQ-9: PHQ-9 Score PHQ-9: Total score 3 04/04/24 08:38 Depression Screening Interpretation: Negative Thrive Assessment: Date of Thrive Assessment Date Thrive assessed 04/04/24 04/04/24 08:38 Currently or been in a relationship where the following occur: no concerns reported Const General: cooperative, comfortable and no acute distress Orientation/consciousness: patient oriented x3 HENMT Head: Yes normocephalic Eyes General: appearance normal, both eyes and all related structures Neck Neck: Yes supple Resp Effort & Inspection: normal respiratory effort, no cough and no stridor Cardio Rhythm: regular rhythm Heart sounds: S1 normal heart sound present and S2 normal heart sound present Skin General skin exam: turgor normal Neuro General: patient oriented x3, tone normal and moves all extremities Extrem Right lower extremity: no edema Left lower extremity: no edema Assessment and Plan Assessment & Plan (1) Environmental allergies: Code(s): Z91.09 - Other allergy status, other than to drugs and biological substances (2) Gout: Comment: dx around 2009 podagra affecting both feet Allopurinol + colchicine started 2009 Code(s): M10.9 - Gout, unspecified Qualifiers: Chronicity: chronic Gout etiology: idiopathic Gout site: multiple sites Presence of tophus: without tophus Qualified Code(s): M1A.09X0 - Idiopathic chronic gout, multiple sites, without tophus (tophi) (3) Impaired fasting blood sugar: Code(s): R73.01 - Impaired fasting glucose (4) Osteoarthritis of knees, bilateral: Code(s): M17.0 - Bilateral primary osteoarthritis of knee Qualifiers: Osteoarthritis type: primary Qualified Code(s): M17.0 - Bilateral primary osteoarthritis of knee (5) Possible alcohol use disorder on screening for alcoholism: Comment: CONSEQUENCES OF DRINKING PROBLEMS There are a number of serious consequences of drinking alcohol excessively -------Excessive alcohol consumption is a leading preventable cause of in the [place]. --------Drinking alcohol increases the risk of traffic accidents, suicide, drowning, and other serious injuries. -------Alcohol use continues to be the leading cause of injuries treated in trauma centers and emergency departments . --------Alcohol-related liver disease may lead to end-stage liver disease (cirrhosis) and . --------Alcohol increases the risk of certain cancers of the mouth, esophagus, throat, liver, and breast. Code(s): Z13.39 - Encounter for screening examination for other mental health and behavioral disorders Plan Patient is a 53-year-old came in today for his six-month follow-up appointment Patient is seeing Rheumatology now, treatment for gout and bilateral osteoarthritis knees through Rheumatology. Patient is prehypertensive with blood pressure readings in 130s systolic We are keeping an eye on that, also encouraged that he monitor his blood pressure at home Allergies are acting up, patient is taking [id number] long-acting anti histamine Colonoscopy appointment coming up end of this month We talked about alcohol use in detail at his last visit I encouraged that he stopped drinking alcohol altogether. Last time he had labs done he had impaired fasting sugar Patient have appointment in October for physical exam Order placed for labs to be done fasting. Orders: Orders Complete Blood Count Auto Diff Today E78.9 - Disorder of lipoprotein metabolism, unspecified, M17.0 - Bilateral primary osteoarthritis of knee, M1A.09X0 - Idiopathic chronic gout, multiple sites, without tophus (tophi), R73.01 - Impaired fasting glucose, T78.40XA - Allergy, unspecified, initial encounter [facility]. Panel Fast Today E78.9 - Disorder of lipoprotein metabolism, unspecified, M17.0 - Bilateral primary osteoarthritis of knee, M1A.09X0 - Idiopathic chronic gout, multiple sites, without tophus (tophi), R73.01 - Impaired fasting glucose, T78.40XA - Allergy, unspecified, initial encounter Lipid Panel Today E78.9 - Disorder of lipoprotein metabolism, unspecified, M17.0 - Bilateral primary osteoarthritis of knee, M1A.09X0 - Idiopathic chronic gout, multiple sites, without tophus (tophi), R73.01 - Impaired fasting glucose, T78.40XA - Allergy, unspecified, initial encounter Vitamin D 25-OH (D2 and D3) Today E78.9 - Disorder of lipoprotein metabolism, unspecified, M17.0 - Bilateral primary osteoarthritis of knee, M1A.09X0 - Idiopathic chronic gout, multiple sites, without tophus (tophi), R73.01 - Impaired fasting glucose, T78.40XA - Allergy, unspecified, initial encounter Hemoglobin A1c Today E78.9 - Disorder of lipoprotein metabolism, unspecified, M17.0 - Bilateral primary osteoarthritis of knee, M1A.09X0 - Idiopathic chronic gout, multiple sites, without tophus (tophi), R73.01 - Impaired fasting glucose, T78.40XA - Allergy, unspecified, initial encounter TSH reflex Free T4 Today E78.9 - Disorder of lipoprotein metabolism, unspecified, M17.0 - Bilateral primary osteoarthritis of knee, M1A.09X0 - Idiopathic chronic gout, multiple sites, without tophus (tophi), R73.01 - Impaired fasting glucose, T78.40XA - Allergy, unspecified, initial encounter Coding Level of Care Code Est Pt Level 3 (59916) Diagnoses Environmental allergies Z91.09 Idiopathic chronic gout of multiple sites without tophus M1A.09X0 Chronicity: chronic Gout etiology: idiopathic Gout site: multiple sites Presence of tophus: without tophus Impaired fasting blood sugar R73.01 Primary osteoarthritis of both knees M17.0 Osteoarthritis type: primary Possible alcohol use disorder on screening for alcoholism Z13.39 Additional Codes LULU-7 Assessment Billing - LULU-7 Assessment Tool: LULU-7 Assessment 86752 ([id number])
[2024-04-04 08:30] VITALS: BP 130/90; PULSE 75; O2SAT 94; BMI 27.3
== END 2024-04-04 09:05 | disposition home or self-care (01) ==
PROVIDERS: PCP Internal Medicine; Visit Provider Internal Medicine
DX: Z91.09 Other allergy status, other than to drugs and biological substances (principal); M1A.09X0 Idiopathic chronic gout, multiple sites, without tophus (tophi); R73.01 Impaired fasting glucose; M17.0 Bilateral primary osteoarthritis of knee; Z13.39 Encounter for screening examination for other mental health and behavioral disorders
CPT/HCPCS: 99213

== ENCOUNTER 2024-04-26 08:12 | Day surgery (SDC) | payer BC, SELFPAY ==
[2024-04-24 15:14] VITALS: BMI 27.1
--- NOTE | 2024-04-25 08:28 | P.CONAN_ITS ---
Documented by User: Nancie Phillips NP 04/25/24 08:29 HPI - Anesthesia Eval Consult details Narrative: 53yo M for Colonoscopy PMFSH Active Problems Active Problems: All Active Problems Environmental allergies (Acute) Osteoarthritis of knees, bilateral (Acute) Impaired fasting blood sugar (Acute) Allergies (Acute) Pain in left knee (Acute) Possible alcohol use disorder on screening for alcoholism (Acute) Colon cancer screening (Acute) Gout (Acute) Lipid disorder (Acute) Establishing care with new doctor, encounter for (Acute) Past Medical History Medical History (Updated 04/24/24 @ 15:14 by Kim Conteh RN) Osteoarthritis Lipid disorder Gout Frozen shoulder syndrome Hx of Lyme disease Family History Family History Mother Hypertension Father Hypertension Prostate CA Dry senile macular degeneration Glaucoma Surgical History Surgical History Hx of tonsillectomy Social History Social History Housing: House Alcohol intake: current Alcohol intake frequency: does not drink Alcohol type: beer, wine and hard liquor Patient Tobacco Use Status: Former Tobacco user e-Cigarette/Vaping Use: Never Used Are you DNR?: No Advance Directives: No Advance Directives Information Provided: Yes service: No Current occupational status: employed 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 [employer] Cognitive needs: No Hearing needs: No Vision needs: Yes Meds Allergies Allergy/AdvReac Type Severity Reaction Status Date / Time No Known Allergies Allergy Verified 04/04/24 08:31 Home Medications ?Medication ?Instructions ?Recorded ?Confirmed ?Last Taken ?Type colchicine 0.6 mg tablet 0.6 mg PO DAILY PRN 11/15/23 04/04/24 Unknown History Exam Height,Weight and Vital Signs: Height 5 ft 6 in Weight 76.204 kg Pertinent Lab Results Pertinent Lab Results: Laboratory Tests 12/27/23 02/15/24 10:00 10:42 WBC 5.2 Hgb 15.7 Hct 46.0 Plt Count 289 Sodium 137 Potassium 4.1 Chloride 102 Carbon Dioxide 28 BUN 11 Creatinine 1.15 Assessment and Plan Assessment Anesthesia Assessment: Chart Reviewed Documented by User: Stacy Amanda MD 04/26/24 09:13 [facility] Past Medical History Medical History (Updated 04/24/24 @ 15:14 by Kim Conteh RN) Osteoarthritis Lipid disorder Gout Frozen shoulder syndrome Hx of Lyme disease Family History Family History Mother Hypertension Father Hypertension Prostate CA Dry senile macular degeneration Glaucoma Family history of problems with anesthesia: No Surgical History Surgical History Hx of tonsillectomy History of Problems with Anesthesia: No Social History Social History Housing: House Alcohol intake: current Alcohol intake frequency: does not drink Alcohol type: beer, wine and hard liquor Patient Tobacco Use Status: Former Tobacco user e-Cigarette/Vaping Use: Never Used Are you DNR?: No Advance Directives: No Advance Directives Information Provided: Yes service: No Current occupational status: employed 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 [employer] Cognitive needs: No Hearing needs: No Vision needs: Yes Meds Allergies Allergy/AdvReac Type Severity Reaction Status Date / Time No Known Allergies Allergy Verified 04/04/24 08:31 Home Medications ?Medication ?Instructions ?Recorded ?Confirmed ?Last Taken ?Type colchicine 0.6 mg tablet 0.6 mg PO DAILY PRN 11/15/23 04/04/24 Unknown History Exam Airway Mallampati Class: II TM Dist: >3cm Neck ROM: Full Heart: rrr Lungs: cta Assessment and Plan Assessment Anesthesia Assessment: Anesthesia Plan Discussed Final Anesthetic Review Family History of Problems with Anesthesia: No History of Problems with Anesthesia: No NPO: Yes ASA Class: II Final Preanesthetic Review: No Changes in Pt Med Stat, Meds/Allgs Chart Reviewed and Consent Obtained/Reviewed Patient Risk: Low Procedure Risk: Low Anesthetic Plan Anesthetic Plan: MAC: Disposition: Standard PACU
[2024-04-26 08:37] VITALS: BP 126/95; PULSE 79; RESP 19; TEMP 37; O2SAT 98; BMI 27.7
[2024-04-26] MEDS: Lactated Ringers 1,000 ML 100 ML IVCONT (08:54)
--- NOTE | 2024-04-26 09:24 | MHC.SHP ---
Pre-Procedural Eval Section A - 24 Hr Update-Section A only Date of Service: 04/26/24 Section B - Complete if H&P > 30 days Chief Complaint: screening Relevant Family History (Specify if Yes): No Relevant Social History: None Present Medications: see Short Stay Collaborative assessment Medical History: Significant History (Osteoarthritis Lipid disorder Gout Frozen shoulder syndrome Hx of Lyme disease) History of Previous Operations: Relevant previous surgery/procedure and date(s) (Hx of tonsillectomy) Allergies: Allergies Allergy/AdvReac Type Severity Reaction Status Date / Time No Known Allergies Allergy Verified 04/04/24 08:31 Review of Systems Sugical H&P ROS: Negative: Constitution, Cardiovascular, Respiratory, Neurological, Psychiatric, Hem-Onc, Allergic/Immunologic, Gastrointestinal, Genitourinary, Musculoskeletal, Integumentary, Endocrine and Eyes/Ears/Nose/Throat Exam Surgical H&P Exam: Normal: HEENT, Normal: Heart, Normal: Lungs, Normal: Extremities, Normal: Abdomen, Normal: Skin and Normal: Neurological Plan Diagnosis/Plan: Unchanged I have reviewed the history and physical and performed a pertinent physical examination on my patient. No changes have occurred unless specified. Time Spent With Patient Time: Total time managing care of this patient today ____ minutes.
--- NOTE | 2024-04-26 10:27 | P.OP_ITS ---
Operative Note Operative Note Date of Service: 04/26/24 Narrative: Operative Information Procedure Description: Colonoscopy Indication: screening Anesthesia: MAC COLONOSCOPY Instrument: Olympus variable stiffness pediatric scope 190L Colonoscopy Monitoring: Vital signs and clinical assessment, continuous EKG monitoring, Pulse oximetry, Carbon Dioxide monitoring and blood pressure monitoring were done throughout the procedure. Colon withdrawal time was 8 minutes. Procedure: The patient was placed in the left lateral decubitis position and pre-procedure medications were administered. After a digital rectal examination of the ano-rectum, the video colonoscope was inserted into the rectum and advanced through the colon to the cecum/TI. The colonoscope was slowly withdrawn in a retrograde panoramic fashion and the colon mucosa was carefully examined including a retroflexed view of the rectum. Findings and interventions are described below. Procedure Difficulty: easy Findings: Terminal Ileum-normal Cecum: 8 mm sessile polyp removed with cold snare Ascending Colon: normal Transverse Colon -normal Descending Colon:normal Sigmoid Colon: normal Rectum: Retroflexion with small internal hemorrhoids seen, grade I Anorectum - normal Intervention: cold snare Colon preparation: [place] Bowel Preparation Scale Right colon; 2 Transverse colon: 2 Left colon; 2 (0 = Unprepared colon segment with mucosa not seen due to solid stool that cannot be cleared. 1 = Portion of mucosa of the colon segment seen, but other areas of the colon segment not well seen due to staining, residual stool and/or opaque liquid. 2 = Minor amount of residual staining, small fragments of stool and/or opaque liquid, but mucosa of colon segment seen well. 3 = Entire mucosa of colon segment seen well with no residual staining, small fragments of stool or opaque liquid) Impression and Post Procedure Diagnosis: colon polyp internal hemorrhoids Plan: High fiber diet leaflet Avoid straining at stool, epsom salts and sitz bath, anusol supps or cream Repeat Colonoscopy in 5 years if adenomatous polyp, 10 yrs if non pre cancerous or earlier if clinically indicated Above findings were reviewed with the patient and relevant handouts were provided if indicated.
[2024-04-26 10:33] VITALS: BP 93/54; PULSE 78; RESP 16; TEMP 36.1; O2SAT 96
[2024-04-26 10:48] VITALS: BP 121/81; PULSE 61; RESP 17; TEMP 36.6; O2SAT 98
== END 2024-04-26 11:38 | disposition home or self-care (01) ==
PROVIDERS: PCP Internal Medicine; Visit Provider Internal Medicine Gastroenterology
PROC: 0DJD8ZZ Inspection of Lower Intestinal Tract, Via Natural or Artificial Opening Endoscopic (ICD-10-PCS; CPT 45378; principal; 2024-04-26 09:50)
DX: Z12.11 Encounter for screening for malignant neoplasm of colon (principal); D12.0 Benign neoplasm of cecum; K64.0 First degree hemorrhoids; M75.00 Adhesive capsulitis of unspecified shoulder; M10.9 Gout, unspecified; M17.0 Bilateral primary osteoarthritis of knee; E75.6 Lipid storage disorder, unspecified; Z86.19 Personal history of other infectious and parasitic diseases; Z79.899 Other long term (current) drug therapy; Z87.891 Personal history of nicotine dependence
CPT/HCPCS: 45385; 88305; J2704

== ENCOUNTER → 2024-04-26 08:12 | Outpatient (BNV) | payer BC, SELFPAY | PROVIDERS: PCP Internal Medicine; Visit Provider Internal Medicine Gastroenterology | DX: Z12.11 Encounter for screening for malignant neoplasm of colon (principal); D12.0 Benign neoplasm of cecum; K64.0 First degree hemorrhoids | CPT/HCPCS: 45385 ==

== ENCOUNTER 2024-05-09 11:52 | Outpatient (AMB) | payer BC, SELFPAY ==
--- NOTE | 2024-05-09 12:03 | A.OFFVIS_ITS ---
Vital Signs 05/09/24 12:04 Height 5 ft 6 in Weight 171 lb BMI 27.6 BP 121/75 Blood Pressure Location Lt brachial Position Sitting Pulse 84 Intake Visit Reasons: f/u colonoscopy Intake Note: Patient follow up for colonoscopy results. Patient denies any GI issues. 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 Denies any issues with anesthesia in the past.? Denies any history of sleep apnea.? No history infectious diseases in the past or present.? Not on any anticoagulation therapy.? No family or personal history of colon cancer or polyps.? Patient denies melena, hematochezia, unintentional weight loss or ribbon like stools.? Discussed at length the pre-procedure,? prep, diet & medications as well as what to expect prior, during and after the procedure.?? Stressed the importance of good bowel prep. ?Recommended the use of Vaseline or Calmoseptine OTC & baby wipes with bowel movements to promote comfort.? ?Patient verbalizes understanding and agrees to plan of care.? He was given the opportunity to ask questions and all questions answered.? We will see him after the procedure.? Medications New bisacodyl (Dulcolax (bisacodyl)) take 4 tabs at noon the day before your colonoscopy 20 mg (4 x 5 mg) PO ONCE 1 day 4 tabs 0RF Z12.11 polyethylene glycol 3350 (Miralax) As directed by gastroenterology department at [facility] 238 grams PO ONCE 238 grams 0RF Z12.11 COLONOSCOPY Findings: Terminal Ileum-normal Cecum: 8 mm sessile polyp removed with cold snare Ascending Colon: normal Transverse Colon -normal Descending Colon:normal Sigmoid Colon: normal Rectum: Retroflexion with small internal hemorrhoids seen, grade I Anorectum - normal Intervention: cold snare Colon preparation: [place] Bowel Preparation Scale Right colon; 2 Transverse colon: 2 Left colon; 2 (0 = Unprepared colon segment with mucosa not seen due to solid stool that cannot be cleared. 1 = Portion of mucosa of the colon segment seen, but other areas of the colon segment not well seen due to staining, residual stool and/or opaque liquid. 2 = Minor amount of residual staining, small fragments of stool and/or opaque liquid, but mucosa of colon segment seen well. 3 = Entire mucosa of colon segment seen well with no residual staining, small fragments of stool or opaque liquid) Impression and Post Procedure Diagnosis: colon polyp internal hemorrhoids Plan: High fiber diet leaflet Avoid straining at stool, epsom salts and sitz bath, anusol supps or cream Repeat Colonoscopy in 5 years if adenomatous polyp, 10 yrs if non pre cancerous or earlier if clinically indicated PATHOLOGY RESULTS Diagnosis Colon, cecal polyp: Tubular adenoma; negative for high-grade dysplasia and carcinoma TODAY'S VISIT Patient is here today for follow-up and to discuss colonoscopy results. Patient denies any ill effects from the prep, anesthesia or procedure itself. Reports loose stools for 48 hours after procedure now subsided. Patient denies any melena, hematochezia. One cecal polyp that shows tubular adenoma without high- grade dysplasia or carcinoma. Discussed with patient results. Patient denies any family history of CRC. 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 [employer] Cognitive needs: No Hearing needs: No Vision needs: Yes Review of Systems Const Denies weight gain and Denies weight loss ENT Reports no additional complaints, Denies dysphagia and Denies odynophagia Card Reports no additional complaints Resp Reports no additional complaints GI Denies abdominal pain, Denies belching, Denies melena, Denies bloating, Denies change in bowel habits, Denies dysphagia, Denies excessive flatus, Denies dyspepsia, Denies heartburn, Denies diarrhea, Denies loose stools, Denies nausea, Denies odynophagia and Denies vomiting Reports no additional complaints Musc Reports no additional complaints Neuro Reports no additional complaints Psych Reports no additional complaints Endo Reports no additional complaints Physical Exam Vital Signs: Last Vital Signs Pulse 84 05/09/24 12:04 BP 121/75 05/09/24 12:04 BMI result Body Mass Index 27.6 Const General: healthy appearing, no acute distress and well developed Nutritional Appearance: well nourished Orientation/consciousness: patient oriented x3 Resp Effort & Inspection: normal respiratory effort, able to speak in complete sentences, no tracheal deviation and symmetric chest movement Auscultation: clear to auscultation bilaterally Cardio Rate: regular rate GI Inspection: Yes normal to inspection and No distended Palpation (GI): Soft to palpation, not firm, nontender and No hepatosplenomegaly present Auscultation: normal bowel sounds General: Yes no CVA tenderness Back/Spine/Pelvis Back: no CVA tenderness Skin General skin exam: elasticity normal, turgor normal and dry skin Neuro General: patient oriented x3 Psych Appearance: grossly normal Mental Status: mental status grossly normal Assessment & Plan Assessment & Plan (1) Status post colonoscopy: Code(s): Z98.890 - Other specified postprocedural states (2) Tubular adenoma: Code(s): D36.9 - Benign neoplasm, unspecified site Plan Colonoscopy in 5 years, sooner if clinically necessary. Tubular adenoma found without high-grade dysplasia or carcinoma. Patient was encouraged to call our office if he will have any black stool or blood with bowel movements. Follow-up in our office as needed. Patient will call if he will have any additional GI concerning symptoms. He is agreeable to current plan of care and verbalizes understanding of instructions. She was given the opportunity to ask questions and all questions answered. Thank you for allowing me to participate in his care Coding Level of Care Code Est Pt Level 3 (00956) Diagnoses Status post colonoscopy Z98.890 Tubular adenoma D36.9 Time Spent (min) 30 Comment 20 minutes spent with patient and additional 10 minutes spent reviewing his records
[2024-05-09 12:04] VITALS: BP 121/75; PULSE 84; BMI 27.6
== END 2024-05-09 13:10 | disposition home or self-care (01) ==
PROVIDERS: PCP Internal Medicine; Visit Provider Nurse Practitioner Family
DX: Z98.890 Other specified postprocedural states (principal); D36.9 Benign neoplasm, unspecified site
CPT/HCPCS: 99213

== ENCOUNTER → 2024-05-09 11:52 | Outpatient (BNVA) | payer BC, SELFPAY | PROVIDERS: PCP Internal Medicine; Visit Provider Nurse Practitioner Family ==

== ENCOUNTER 2024-05-17 08:02 | Outpatient (AMB) | payer BC, SELFPAY ==
--- NOTE | 2024-05-17 08:09 | A.OFFVIS_ITS ---
Vital Signs 05/17/24 08:12 Height 5 ft 6 in Weight 167 lb 15.876 oz BMI 27.1 BP 120/80 Blood Pressure Location Rt brachial Position Sitting Respiration 16 Pulse 63 Pulse Source Pulse Oximeter Pulse Oximetry (%) 95 Oxygen Delivery Method Room Air Intake Visit Reasons: Gout/lm Intake Note: Patient presents for Gout. Allergies No Known Allergies Allergy (Verified 05/17/24 08:12) Medication List - Last Reconciled 05/17/24 by Marck Lai MD allopurinol 300 mg PO DAILY colchicine 0.6 mg PO DAILY PRN HPI Comments Details: 53-year-old male with gout returns for follow-up. Has been doing quite well in terms of his gout. He remains on allopurinol 300 mg daily. Has not had any gout flare-ups. Has not used colchicine for a very long time. States that he continues to have bilateral knee pain, worse on the left. Believes it is tendinitis/bursitis. 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 States that diclofenac gel helps, but it is short-lived. He would use it 4 to 5 times a day. Left knee injection done last visit was not helpful. Only helped for 3 days. Recently has noted left hip discomfort especially when sleeping on his side at night. Initial history: This is a 52-year-old male with gout who is referred for gout management. Patient lived in [place] for many years and used to follow-up regularly with rheumatology Dr. José Sanders in [facility]. He states that he was diagnosed with gout around 2009. He was having gout episodes affecting his big toes. He was started on allopurinol and colchicine and has been doing quite well. Has not had a gout flare-up in years. States that back in December 2022 his uric acid level was elevated and his wire bound box machine operator increase the allopurinol to 300 mg daily which he has been taking until June of 2023 then ran out of the 300 mg dose. He has been taking the 200 mg dose. Has not use colchicine in years. He states that he was diagnosed with frozen shoulder a few years ago affecting his right shoulder, treated with PT. an x-ray showed AC separation States that for about a year and a half or so he has been having left medial knee pain and was told he has tendinitis he was taking diclofenac as needed for this pain, he recently ran out and has been using topical Voltaren gel as needed. It has not been bothering him today. 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 He denies any history of kidney stones. He is unaware of any family history of gout. 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 [employer] Cognitive needs: No Hearing needs: No Vision needs: Yes Review of Systems Musc Reports arthralgias Physical Exam Vital Signs: Last Vital Signs Pulse 63 05/17/24 08:12 Resp 16 05/17/24 08:12 BP 120/80 05/17/24 08:12 Pulse Ox 95 05/17/24 08:12 Oxygen Delivery Method Room Air 05/17/24 08:12 BMI result Body Mass Index 27.1 Const General: cooperative, healthy appearing and comfortable Nutritional Appearance: overweight Orientation/consciousness: patient oriented x3 Limitations: no limitations HEENT Head: Yes normocephalic and Yes atraumatic Mouth: moist mucous membranes Resp Effort & Inspection: normal respiratory effort and able to speak in complete sentences Cardio Rate: regular rate Rhythm: regular rhythm GI Inspection: No distended Palpation (GI): Soft to palpation and nontender Skin General skin exam: no rashes or lesions noted Neuro General: patient oriented x3 Extrem Other: Osteoarthritic changes of both hands with Heberden's nodes but no active synovitis. No tophi noted Normal range of motion of both shoulders Left knee crepitus Left trochanteric bursa area tenderness with negative Cecille's test Assessment & Plan Assessment & Plan (1) Gout: Comment: dx around 2009 podagra affecting both feet Allopurinol + colchicine started 2009 Code(s): M10.9 - Gout, unspecified Category: Medical Qualifiers: Gout site: multiple sites Gout etiology: idiopathic Chronicity: chronic Presence of tophus: without tophus Qualified Code(s): M1A.09X0 - Idiopathic chronic gout, multiple sites, without tophus (tophi) Plan: This is a 53-year-old male with gout who presents for follow-up. On allopurinol 300 mg daily. Most recent uric acid level 6.0. Continue allopurinol 300 mg daily. 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 Voltaren gel used 4 to 5 times a day provides short term relief.? Last visit I injected his left knee with Kenalog, it only helped him for 3 days.? Historically, Patient gets GI upset with oral NSAIDs.? We discussed NSAIDs and their association with GI, cardio and nephrotoxicity. Start Celebrex 100 mg Twice daily as needed for pain. Advised patient to use it sparingly\ We discussed quadriceps strengthening exercises (3) Greater trochanteric pain syndrome of left lower extremity: Code(s): M25.552 - Pain in left hip Category: Medical Plan: I provided patient with a printout of home exercise Plan I spent 24 minutes reviewing patient's chart, evaluating patient, ordering diagnostic workup, counseling patient and documenting in the chart Orders: Orders Complete Blood Count Auto Diff 6 Months M1A.09X0 - Idiopathic chronic gout, multiple sites, without tophus (tophi) Comprehensive Met. Panel Today M1A.09X0 - Idiopathic chronic gout, multiple sites, without tophus (tophi) Uric Acid Today M1A.09X0 - Idiopathic chronic gout, multiple sites, without tophus (tophi) Comprehensive Met. Panel 6 Months M1A.09X0 - Idiopathic chronic gout, multiple sites, without tophus (tophi) Uric Acid 6 Months M1A.09X0 - Idiopathic chronic gout, multiple sites, without tophus (tophi) Medications: New celecoxib (Celebrex) 100 mg PO BID PRN 30 caps 0RF pain Coding Level of Care Code Est Pt Level 4 (98467) Diagnoses Idiopathic chronic gout of multiple sites without tophus M1A.09X0 Gout site: multiple sites Gout etiology: idiopathic Chronicity: chronic Presence of tophus: without tophus Primary osteoarthritis of left knee M17.12 Osteoarthritis type: primary Greater trochanteric pain syndrome of left lower extremity M25.552
[2024-05-17 08:12] VITALS: BP 120/80; PULSE 63; RESP 16; O2SAT 95; BMI 27.1
== END 2024-05-17 08:31 | disposition home or self-care (01) ==
PROVIDERS: PCP Internal Medicine; Visit Provider Student in an Organized Health Care Education/Training Program
DX: M1A.09X0 Idiopathic chronic gout, multiple sites, without tophus (tophi) (principal); M17.12 Unilateral primary osteoarthritis, left knee; M25.552 Pain in left hip
CPT/HCPCS: 99214

== ENCOUNTER → 2024-05-17 08:02 | Outpatient (BNVA) | payer BC, SELFPAY | PROVIDERS: PCP Internal Medicine; Visit Provider Student in an Organized Health Care Education/Training Program ==

== ENCOUNTER 2024-05-17 08:36 | Outpatient (REF) | payer BC, SELFPAY ==
[2024-05-17 12:15] LABS: Alanine Aminotransferase 33 U/L (0-40); Albumin Level 4.7 g/dL (3.5-5.0); Alkaline Phosphatase 63 U/L (39-117); Anion Gap 12 (12-20); Aspartate Amino Transferase 27 U/L (5-37); Bilirubin Total 0.7 mg/dL (0.0-1.0); Blood Urea Nitrogen 14 mg/dL (9-16); Calcium 10.1 mg/dL (8.4-10.2); Carbon Dioxide 27 mmol/L (22-29); Chloride 106 mmol/L (96-108); Estimated Glomerular Filt Rate > 60; Glucose Random 103 mg/dL (60-115); Potassium 5.1 mmol/L (3.3-5.1); Sodium 140 mmol/L (135-145); Total Protein 7.4 g/dL (6.5-8.0); Uric Acid 7.4 mg/dL (3.4-7.0)
== END 2024-05-17 08:37 | disposition home or self-care (01) ==
LOC: HO.10HDL 08:36
PROVIDERS: Visit Provider Student in an Organized Health Care Education/Training Program
DX: M1A.09X0 Idiopathic chronic gout, multiple sites, without tophus (tophi) (principal)
CPT/HCPCS: 36415; 80053; 84550

== ENCOUNTER 2024-11-16 09:22 | Outpatient (AMB) | payer BC, SELFPAY ==
--- NOTE | 2024-11-16 09:28 | MHC.OFFVIS ---
Vital Signs 11/16/24 09:31 Height 5 ft 6 in Weight 170 lb 3.15 oz BMI 27.5 BP 118/78 Blood Pressure Location Rt brachial Position Sitting Respiration 18 Pulse 90 Pulse Source Pulse Oximeter Pulse Oximetry (%) 98 Oxygen Delivery Method Room Air Intake Visit Reasons: GOut Intake Note: Patient presents for Gout. Allergies No Known Allergies Allergy (Verified 11/16/24 09:31) Medication List - Last Reconciled 11/16/24 by Marck Lai MD allopurinol 100 mg PO DAILY allopurinol 300 mg PO DAILY celecoxib 100 mg PO BID PRN colchicine 0.6 mg PO DAILY PRN HPI Comments Details: 53-year-old male with gout returns for follow-up. Has been doing quite well in terms of his gout. He increased his allopurinol to 400 mg daily after last visit. Has not had any gout flare-ups. Has not used colchicine for a very long time. He states that his knee pain has been better, he has been using Osteo Bioflex. He takes colchicine once daily about 7-10 times a month without side effects. Recently has noticed some pain in his left shoulder just above his scapula. Denies any recent trauma or overuse Initial history: This is a 52-year-old male with gout who is referred for gout management. Patient lived in [place] for many years and used to follow-up regularly with rheumatology Dr. José Sanders in [facility]. He states that he was diagnosed with gout around 2009. He was having gout episodes affecting his big toes. He was started on allopurinol and colchicine and has been doing quite well. Has not had a gout flare-up in years. 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 He has been taking the 200 mg dose. Has not use colchicine in years. He states that he was diagnosed with frozen shoulder a few years ago affecting his right shoulder, treated with PT. an x-ray showed AC separation States that for about a year and a half or so he has been having left medial knee pain and was told he has tendinitis he was taking diclofenac as needed for this pain, he recently ran out and has been using topical Voltaren gel as needed. It has not been bothering him today. 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 He denies any history of kidney stones. He is unaware of any family history of gout. 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 [employer] Cognitive needs: No Hearing needs: No Vision needs: Yes Review of Systems Musc Reports arthralgias Physical Exam Vital Signs: Last Vital Signs Pulse 90 11/16/24 09:31 Resp 18 11/16/24 09:31 BP 118/78 11/16/24 09:31 Pulse Ox 98 11/16/24 09:31 Oxygen Delivery Method Room Air 11/16/24 09:31 BMI result Body Mass Index 27.5 Const General: cooperative, healthy appearing and comfortable Nutritional Appearance: overweight Orientation/consciousness: patient oriented x3 Limitations: no limitations HEENT Head: Yes normocephalic and Yes atraumatic Mouth: moist mucous membranes Resp Effort & Inspection: normal respiratory effort and able to speak in complete sentences Cardio Rate: regular rate Rhythm: regular rhythm GI Inspection: No distended Palpation (GI): Soft to palpation and nontender Skin General skin exam: no rashes or lesions noted Neuro General: patient oriented x3 Extrem Other: Osteoarthritic changes of both hands with Heberden's nodes but no active synovitis. No tophi noted Normal range of motion of both shoulders Left knee crepitus Positive lift-off test on the left Assessment & Plan Assessment & Plan (1) Gout: Comment: dx around 2009 podagra affecting both feet Allopurinol + colchicine started 2009 Code(s): M10.9 - Gout, unspecified Category: Medical Qualifiers: Gout site: multiple sites Gout etiology: idiopathic Chronicity: chronic Presence of tophus: without tophus Qualified Code(s): M1A.09X0 - Idiopathic chronic gout, multiple sites, without tophus (tophi) Plan: This is a 53-year-old male with gout who presents for follow-up. His uric acid level was above 7 mg per mg/dL last visit and we increased his allopurinol to 400 mg a day. Has not had any gout flare-ups for a very long time. Check uric acid level today and adjust allopurinol dose accordingly, will likely stay on 400 mg a day Labs before next visit in 6 months (2) Osteoarthritis of left knee: Code(s): M17.12 - Unilateral primary osteoarthritis, left knee Category: Medical Qualifiers: Osteoarthritis type: primary Qualified Code(s): M17.12 - Unilateral primary osteoarthritis, left knee Plan: Has been using Osteo Bioflex with some improvement. Discussed with patient that there is no solid data advocating their use however they should not cause any harm, can continue if he feels they are helpful, he has been using Celebrex 100 mg once daily 7-10 times a month as needed. (3) Tendinitis of left rotator cuff: Code(s): M75.82 - Other shoulder lesions, left shoulder Category: Medical Plan: Referred to PT Plan I spent 24 minutes reviewing patient's chart, evaluating patient, ordering diagnostic workup, counseling patient and documenting in the chart Orders: Orders Basic Metabolic Panel 180 Days M1A.09X0 - Idiopathic chronic gout, multiple sites, without tophus (tophi) Uric Acid Today M1A.09X0 - Idiopathic chronic gout, multiple sites, without tophus (tophi) Basic Metabolic Panel Today M1A.09X0 - Idiopathic chronic gout, multiple sites, without tophus (tophi) PT Evaluation and Treatment Today M75.82 - Other shoulder lesions, left shoulder Coding Level of Care Code Est Pt Level 4 (22256) Diagnoses Idiopathic chronic gout of multiple sites without tophus M1A.09X0 Gout site: multiple sites Gout etiology: idiopathic Chronicity: chronic Presence of tophus: without tophus Primary osteoarthritis of left knee M17.12 Osteoarthritis type: primary Tendinitis of left rotator cuff M75.82
[2024-11-16 09:31] VITALS: BP 118/78; PULSE 90; RESP 18; O2SAT 98; BMI 27.5
== END 2024-11-16 09:52 | disposition home or self-care (01) ==
PROVIDERS: PCP Internal Medicine; Visit Provider Student in an Organized Health Care Education/Training Program
DX: M1A.09X0 Idiopathic chronic gout, multiple sites, without tophus (tophi) (principal); M17.12 Unilateral primary osteoarthritis, left knee; M75.82 Other shoulder lesions, left shoulder
CPT/HCPCS: 99214

== ENCOUNTER 2024-11-16 10:12 | Outpatient (REF) | payer BC, SELFPAY ==
[2024-11-16 10:34] LABS: MANUAL DIFF FLAG NO
[2024-11-16 10:39] LABS: Basophils Absolute Auto 0.1 X10*3/uL (0.0-0.2); Basophils Percent Auto 1.3 % (0-2); Eosinophils Absolute Auto 0.7 X10*3/uL (0.0-0.4); Eosinophils Percent Auto 13.1 % (0-4); Hematocrit 44.1 % (42.0-52.0); Hemoglobin 15.1 g/dl (14.0-18.0); Imm Gran Abs Auto 0.01 X10*3/uL (0.00-0.03); Imm Gran Pct Auto 0.2 % (0.0-0.4); Lymphocytes Absolute Auto 1.8 X10*3/uL (1.2-4.9); Lymphocytes Percent Auto 32.2 % (20-40); Mean Corpuscular HGB Conc 34.2 g/dl (31.0-36.0); Mean Corpuscular Hemoglobin 31.5 pg (27.0-33.0); Mean Corpuscular Volume 91.9 fL (80.0-98.0); Mean Platelet Volume 9.3 fL (9.4-12.4); Monocytes Absolute Auto 0.5 X10*3/uL (0.1-1.2); Monocytes Percent Auto 8.6 % (2-11); Neutrophils Absolute Auto 2.5 x10*3/uL (2.0-8.3); Neutrophils Percent Auto 44.6 % (45-73); Platelet Count 253 X10*3/uL (160-400); Red Cell Distribution Width 12.4 % (11.0-16.0); White Blood Count 5.6 X10*3/uL (4.8-10.8)
[2024-11-16 10:58] LABS: Alanine Aminotransferase 56 U/L (0-40); Albumin Level 4.6 g/dL (3.5-5.0); Alkaline Phosphatase 55 U/L (39-117); Anion Gap 10 (12-20); Aspartate Amino Transferase 33 U/L (5-37); Bilirubin Total 0.6 mg/dL (0.0-1.0); Blood Urea Nitrogen 17 mg/dL (9-16); Calcium 9.6 mg/dL (8.4-10.2); Carbon Dioxide 28 mmol/L (22-29); Chloride 107 mmol/L (96-108); Estimated Glomerular Filt Rate > 60; Glucose Random 94 mg/dL (60-115); Potassium 3.9 mmol/L (3.3-5.1); Sodium 141 mmol/L (135-145); Total Protein 7.1 g/dL (6.5-8.0)
[2024-11-16 11:21] LABS: Uric Acid 4.7 mg/dL (3.4-7.0)
== END 2024-11-16 10:13 | disposition home or self-care (01) ==
LOC: HO.10HDL 10:12
PROVIDERS: Visit Provider Student in an Organized Health Care Education/Training Program
DX: M1A.09X0 Idiopathic chronic gout, multiple sites, without tophus (tophi) (principal)
CPT/HCPCS: 36415; 80053; 84550; 85025

== ENCOUNTER 2024-11-22 13:58 | Outpatient (AMB) | payer BC, SELFPAY ==
--- NOTE | 2024-11-22 13:59 | A.OFFPC_ITS ---
Vital Signs 11/22/24 14:00 Height 5 ft 6 in Weight 174 lb 6 oz BMI 28.1 BP 122/84 Blood Pressure Location Rt brachial Position Sitting Pulse 87 Pulse Source Pulse Oximeter Pulse Oximetry (%) 98 Oxygen Delivery Method Room Air Intake Visit Reasons: Annual PE Allergies No Known Allergies Allergy (Verified 11/16/24 09:31) Medication List - Last Reconciled 11/22/24 by Javier Miguel MD allopurinol 100 mg PO DAILY allopurinol 300 mg PO DAILY celecoxib 100 mg PO BID PRN colchicine 0.6 mg PO DAILY PRN Tobacco use date assessed: 04/04/24 Dental Screening Dental Screen Date: 04/04/24 HPI Annual PE HPI Details Physical exam appointment The patient is a 53-year-old male . - Osteoarthritis affects both knees, wit h Celecoxib improving joint function. Established with Rheumatology - Liver enzyme elevation ALT, fluctuate up and down, attributed to possible fatty liver. - Gout managed with Allopurinol; symptom -free recently. - Left shoulder discomfort, suspected ro tator cuff injury; no current injection treatment. Health Maintenance - Completed colonoscopy last summer 2023 with removal of one potentially precancerous polyp; follow-up scheduled for April 2026. [facility] - Received flu vaccine recently. 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 - Attempted to re-enter the workforce tw o years ago for additional [employer] benefits. Patient Instructions - Consider resuming exercise as knee nasim n is currently managed. - Continue medications as prescribed for osteoarthritis and gout. - Maintain a healthy weight to potential ly improve liver enzyme levels. Review of Systems - Musculoskeletal: Denies current joint pain. - Gastrointestinal: Denies nausea, vomit ing, constipation, and diarrhea. - Cardiovascular/Respiratory: Denies tori st pain and shortness of breath. - Dermatological: Denies rash or skin pr oblems. - General: No fever no chills - Neurological: No headaches no dizzin ess - Ear nose throat: No sore throat no hearing difficulty no ear pain - Endocrine: No polyuria polydipsia no heat intolerance - Genitourinary: No dysuria Physical Exam General: Cooperative, healthy appearing, comfortable, no acute distress Orientation: Patient oriented x3 Limitations: Due to pain in his Head: Normal to inspection Ears: Within normal limit visually Nose: Normal external nose present Face and sinus: Normal facial exam Eyes: Appearance normal, extraocular movement intact pupils reactive Neck: Normal visual inspection and supple Respiratory: Normal respiratory effort and able to speak in complete sentences. Clear to auscultation, no stridor Cardiovascular: S1 and S2 GI: Normal to inspection. Soft to palpation and nontender Skin: Turgor normal, no acute findings, no rash, no skin problems Neuro: Patient oriented x3, motor sensory intact, balance intact, tandem pass Extremities: Normal to inspection, bilateral knee problems due to osteoarthritis, potential rotator cuff issue in left shoulder, history of gout affecting big toe lines, currently managed with allopurinol and no recent attacks. 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 1. Little interest or pleasure in doing things: not at all 2. Feeling down, depressed, or hopeless: not at all 3. Trouble falling or staying asleep, or sleeping too much: not at all 4. Feeling tired or having little energy: not at all 5. Poor appetite or overeating: not at all 6. Feeling bad about yourself - or that you are a failure or have let yourself or your family down: not at all 7. Trouble concentrating on things, such as reading the newspaper or watching television: not at all 8. Moving or speaking so slowly that other people could have noticed. Or the opposite - being so fidgety or restless that you have been moving around a lot more than usual: not at all 9. Thoughts that you would be better off or of hurting yourself in some way: not at all Total score: 0 Depression Screening Interpretation: Negative Depression Screening Done: Yes 52848 - PHQ-9 Billing: Yes Source: Developed by Drs. Matt Beatty, Ruma Werner, Jay Archibald and colleagues, with an educational sophie from [employer]. Thrive Questionnaire Date Thrive assessed: 11/22/24 I am a: Patient What is your living situation today?: I have a steady place to live Within the past 12 months, did the food you bought not last and you didn't have the money to get more?: Never true Within the past 12 months, did you worry whether your food would run out before you got money to buy more?: Never true Do you have trouble paying for medicines?: No Do you have trouble getting transportation to medical appointments?: No Do you have trouble paying your heating and electricity bill?: No Do you have trouble taking care of your child, family member or friend?: No Do you have trouble with day-to-day activities such as bathing, preparing meals, shopping, managing finances, etc.?: No Are you currently unemployed and looking for a job?: No Are you interested in more education?: No Please select the resources that you would like help with: None Currently or been in a relationship where the following occur: No concerns reported THRIVE Score: 0 AUDIT C Alcohol Use Questionnaire (AUDIT-C) 1. How often do you have a drink containing alcohol?: 2-4 times a month 2. How many drinks containing alcohol do you have on a typical day when you are drinking?: 3 or 4 3. How often do you have six or more drinks on one occasion?: Less than monthly Total Score: 4 Score Reviewed/Action Taken: Yes LULU-7 AMB Questionnaire LULU-7 Date LULU - 7 assessed: 11/22/24 Feeling nervous, anxious, or on edge: 0 = Not at all Not being able to stop or control worryin = Not at all Worrying too much about different things: 0 = Not at all Trouble relaxin = Not at all Being so restless that it is hard to sit still: 0 = Not at all Becoming easily annoyed or irritable: 0 = Not at all Feeling afraid as if something awful might happen: 0 = Not at all Total LULU-7 score (0-4 normal; 5-9 mild; 10-14 moderate; 15-21 severe): 0 Source: Developed by Drs. Matt Beatty, Ruma Werner, Jay Archibald and colleagues, with an educational sophie from [employer]. LULU-7 Assessment Billing LULU-7 Assessment Tool: LULU-7 Assessment 04362 Physical exam (Primary Care) Vital Signs: Last Vital Signs Pulse 87 11/22/24 14:00 BP 122/84 11/22/24 14:00 Pulse Ox 98 11/22/24 14:00 Oxygen Delivery Method Room Air 11/22/24 14:00 BMI result Body Mass Index 28.1 Tobacco/Smoking Status: Tobacco use Status Tobacco use date assessed 04/04/24 11/22/24 14:00 Patient Tobacco Use Status Former Tobacco user 11/22/24 14:00 e-Cigarette/Vaping Use Never Used 11/22/24 14:00 PHQ-9: PHQ-9 Score PHQ-9: Total score 0 11/22/24 14:00 Depression Screening Interpretation: Negative Thrive Assessment: Date of Thrive Assessment Date Thrive assessed 11/22/24 11/22/24 14:00 Currently or been in a relationship where the following occur: No concerns reported Coding Level of Care Code Est Pt Level 3 (56903) Est Pt Prev Care 40-64y(72205) Diagnoses Establishing care with new doctor, encounter for Z76.89 LFT elevation R79.89 Primary osteoarthritis of both knees M17.0 Osteoarthritis type: primary Overweight (BMI 25.0-29.9) E66.3 Additional Codes LULU-7 Assessment Billing - LULU-7 Assessment Tool: LULU-7 Assessment 87638 ([id number]) PHQ-9 - 17915 - PHQ-9 Billing: Yes ([id number]) Assessment & Plan Assessment & Plan (1) Establishing care with new doctor, encounter for: Code(s): Z76.89 - Persons encountering health services in other specified circumstances Category: Medical (2) LFT elevation: Code(s): R79.89 - Other specified abnormal findings of blood chemistry Category: Medical (3) Osteoarthritis of knees, bilateral: Code(s): M17.0 - Bilateral primary osteoarthritis of knee Category: Medical Qualifiers: Osteoarthritis type: primary Qualified Code(s): M17.0 - Bilateral primary osteoarthritis of knee (4) Overweight (BMI 25.0-29.9): Code(s): E66.3 - Overweight Category: Medical Plan Physical exam appointment The patient is a 53-year-old male . - Osteoarthritis affects both knees, with Celecoxib improving joint function. Established with Rheumatology - Liver enzyme elevation ALT, fluctuate up and down, attributed to possible fatty liver. - Gout managed with Allopurinol; symptom-free recently. - Left shoulder discomfort, suspected rotator cuff injury; no current injection treatment. Health Maintenance - Completed colonoscopy last summer 2023 with removal of one potentially precancerous polyp; follow-up scheduled for April 2026. [facility] - Received flu vaccine recently. 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 - Attempted to re-enter the workforce two years ago for additional [employer] benefits. Patient Instructions - Consider resuming exercise as knee pain is currently managed. - Continue medications as prescribed for osteoarthritis and gout. - Maintain a healthy weight to potentially improve liver enzyme levels.
[2024-11-22 14:00] VITALS: BP 122/84; PULSE 87; O2SAT 98; BMI 28.1
== END 2024-11-22 14:57 | disposition home or self-care (01) ==
PROVIDERS: PCP Internal Medicine; Visit Provider Internal Medicine
DX: Z00.00 Encounter for general adult medical examination without abnormal findings (principal); R79.89 Other specified abnormal findings of blood chemistry; M17.0 Bilateral primary osteoarthritis of knee; E66.3 Overweight; Z68.28 Body mass index [BMI] 28.0-28.9, adult; Z76.89 Persons encountering health services in other specified circumstances

== ENCOUNTER → 2024-11-22 13:58 | Outpatient (BNVA) | payer BC, SELFPAY | PROVIDERS: PCP Internal Medicine; Visit Provider Internal Medicine | DX: Z00.01 Encounter for general adult medical examination with abnormal findings (principal); R79.89 Other specified abnormal findings of blood chemistry; M17.0 Bilateral primary osteoarthritis of knee; E66.3 Overweight; M10.9 Gout, unspecified; M25.512 Pain in left shoulder; Z79.899 Other long term (current) drug therapy | CPT/HCPCS: 96127 ==

== ENCOUNTER 2025-06-25 09:39 | Outpatient (REF) | payer BC, SELFPAY ==
[2025-06-25 11:20] LABS: Anion Gap 12 (12-20); Blood Urea Nitrogen 16 mg/dL (9-16); Calcium 9.6 mg/dL (8.4-10.2); Carbon Dioxide 28 mmol/L (22-29); Chloride 105 mmol/L (96-108); Estimated Glomerular Filt Rate > 60; Potassium 4.7 mmol/L (3.3-5.1); Sodium 140 mmol/L (135-145); Uric Acid 5.0 mg/dL (3.4-7.0)
== END 2025-06-25 09:40 | disposition home or self-care (01) ==
LOC: HO.10HDL 09:39
PROVIDERS: Visit Provider Student in an Organized Health Care Education/Training Program
DX: M1A.09X0 Idiopathic chronic gout, multiple sites, without tophus (tophi) (principal)
CPT/HCPCS: 36415; 80048; 84550

== ENCOUNTER 2025-06-26 09:40 | Outpatient (AMB) | payer BC, SELFPAY ==
--- NOTE | 2025-06-26 09:43 | A.OFFVIS_ITS ---
Vital Signs 06/26/25 09:50 Height 5 ft 6 in Weight 167 lb 15.876 oz BMI 27.1 BP 124/80 Blood Pressure Location Lt brachial Position Sitting Pulse 80 Pulse Source Pulse Oximeter Pulse Oximetry (%) 96 Oxygen Delivery Method Room Air Intake Visit Reasons: Gout Intake Note: Patient presents for Gout follow up. Allergies No Known Allergies Allergy (Verified 06/26/25 09:49) HPI Comments Details: Patient is a 54-year-old male with alcohol use disorder, hyperlipidemia, poly articular osteoarthritis and non crystal proven, non tophaceous gout here today for follow up Interval History: Patient last seen 11/16/[address] Lai - On Allopurinol 400mg daily - no gout flares - UA at goal - Knee OA better on Osteo Bioflex Today - On Allopurinol 400mg daily - No gout flares - UA at goal - Current complains of bilateral knee pain and shoulder pain L>R (Right shoulder with hx of frozen shoulder, resolved with PT) Rheumatologic History: Non topahceous gout dx around 2009 podagra affecting both feet Allopurinol + colchicine started 2009 Initial history: This is a 52-year-old male with gout who is referred for gout management. Patient lived in [place] for many years and used to follow-up regularly with rheumatology Dr. José Sanders in [facility]. He states that he was diagnosed with gout around 2009. He was having gout episodes affecting his big toes. He was started on allopurinol and colchicine and has been doing quite well. Has not had a gout flare-up in years. States that back in December 2022 his uric acid level was elevated and his patch sander increase the allopurinol to 300 mg daily which he has been taking until June of 2023 then ran out of the 300 mg dose. He has been taking the 200 mg dose. Has not use colchicine in years. He states that he was diagnosed with frozen shoulder a few years ago affecting his right shoulder, treated with PT. an x-ray showed AC separation States that for about a year and a half or so he has been having left medial knee pain and was told he has tendinitis he was taking diclofenac as needed for this pain, he recently ran out and has been using topical Voltaren gel as needed. It has not been bothering him today. 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 He denies any history of kidney stones. He is unaware of any family history of gout. 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 [employer] Cognitive needs: No Hearing needs: No Vision needs: Yes Review of Systems Const Details: Review of Systems Constitutional: Denies fever, chills, weight loss ENT: Denies vision changes, eye pain or eye redness, dental caries, dry mouth GI: Denies nausea, vomiting, diarrhea, abdominal pain, change in BM Pulm: Denies SOB, NOVOA, hemoptysis, wheezing Cards: Denies chest pain, palpitations Skin: Denies Raynaud's, rash, nail changes, photosensitivity, SPEECH CLINICIAN: Denies headaches, weakness, paresthesias, recurrent falls MSK: as per HPI All other systems reviewed and are unremarkable except noted above Physical Exam Exam Exam: Vital signs reviewed Physical Examination CONSTITUITIONAL Patient alert and cooperative. Well appearing and in no apparent painful distress MSK Hands * Right Hand: Able to make a fist. No swelling or tenderness to palpation of the MCPs, PIPs or DIPs. No deformities noted. * Left Hand: Able to make a fist. No swelling or tenderness to palpation of the MCPs, PIPs or DIPs. No deformities noted. * Herbedens nodes noted bilaterally Wrists * Right Wrist: Full ROM to flexion and extension. No swelling or TTP * Left Wrist: Full ROM to flexion and extension. No swelling or TTP Elbows * Right Elbow: Full ROM. No swelling or TTP. No TTP of the medial epicondyle. No TTP of the lateral epicondyle * Left Elbow: Full ROM. No swelling or TTP. No TTP of the medial epicondyle. No TTP of the lateral epicondyle Shoulders * Right shoulder: Full ROM. No swelling noted. No TTP of the AC joint. No TTP of the subacromial bursa. No TTP of the posterior shoulder * Left shoulder: Full ROM. No swelling noted. No TTP of the AC joint. No TTP of the subacromial bursa. No TTP of the posterior shoulder Knees * Right knee: Full ROM. No swelling noted. No TTP of the knee joint line. No TTP of pes anserine bursa * Left knee: Full ROM. No swelling noted. No TTP of the knee joint line. No TTP of pes anserine bursa. * Crepitations felt bilaterally Ankles * Right ankle: Good ankle dorsiflexion and plantar flexion. No swelling. No TTP of the ankle joint * Left ankle: Good ankle dorsiflexion and plantar flexion. No swelling. No TTP of the ankle joint Feet * Right foot: Negative squeeze test * Left foot: Negative squeeze test Tender points? * No tenderness to palpation of the bilateral trapezius, supraspinatus, anterior costochondral junctions, bilateral suboccipital muscle insertions SKIN No rashes Vital Signs: Last Vital Signs Pulse 80 06/26/25 09:50 BP 124/80 06/26/25 09:50 Pulse Ox 96 06/26/25 09:50 Oxygen Delivery Method Room Air 06/26/25 09:50 BMI result Body Mass Index 27.1 Results Reviewed Results Reviewed: Laboratory Tests 11/16/24 06/25/25 10:19 09:42 WBC 5.6 RBC 4.80 Hgb 15.1 Hct 44.1 Plt Count 253 Sodium 140 Potassium 4.7 D Chloride 105 Carbon Dioxide 28 BUN 16 Creatinine 0.98 Uric Acid 5.0 ALT 56 H Alkaline Phosphatase 55 XR Bilateral Knee 01/2024 FINDINGS: RIGHT KNEE: Trace joint effusion. Mild narrowing of the medial compartment. LEFT KNEE: Moderate joint effusion. Mild narrowing of the medial and lateral compartments. IMPRESSION: Mild degenerative changes in the bilateral knees. Assessment & Plan Assessment & Plan (1) Gout: Comment: dx around 2009 podagra affecting both feet Allopurinol + colchicine started 2009 Code(s): M10.9 - Gout, unspecified Category: Medical Qualifiers: Gout site: multiple sites Gout etiology: idiopathic Chronicity: chronic Presence of tophus: without tophus Qualified Code(s): M1A.09X0 - Idiopathic chronic gout, multiple sites, without tophus (tophi) Plan: #Gout Patient is a 54-year-old male with non crystal proven non tophaceous gout here today for follow up. Currently in remission on allopurinol monotherapy Plan - Allopurinol 400mg - RTC 6 months - Labs before next visit: CMP, uric acid (2) Osteoarthritis of knees, bilateral: Code(s): M17.0 - Bilateral primary osteoarthritis of knee Category: Medical Qualifiers: Osteoarthritis type: primary Qualified Code(s): M17.0 - Bilateral primary osteoarthritis of knee Plan: #Bilateral knee OA Patient with bilateral knee osteoarthritis. Complaining of continued knee pain. Previously had steroid injection which had only 1 day of effect. 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 Plan I spent 25 minutes reviewing the record and labs, taking a history, examining the patient, discussing the treatment plan, ordering diagnostic work up and documenting in the medical record Coding Level of Care Code Est Pt Level 3 (99493) Complex EM visit Add On G2211 Diagnoses Idiopathic chronic gout of multiple sites without tophus M1A.09X0 Gout site: multiple sites Gout etiology: idiopathic Chronicity: chronic Presence of tophus: without tophus Primary osteoarthritis of both knees M17.0 Osteoarthritis type: primary Encounter for monitoring allopurinol therapy Z51.81; Z79.899
[2025-06-26 09:50] VITALS: BP 124/80; PULSE 80; O2SAT 96; BMI 27.1
== END 2025-06-26 10:18 | disposition home or self-care (01) ==
LOC: HO.RHES 09:41
PROVIDERS: PCP Internal Medicine; Visit Provider Student in an Organized Health Care Education/Training Program
DX: M1A.09X0 Idiopathic chronic gout, multiple sites, without tophus (tophi) (principal); M17.0 Bilateral primary osteoarthritis of knee; Z51.81 Encounter for therapeutic drug level monitoring; Z79.899 Other long term (current) drug therapy
CPT/HCPCS: 99213